=== PATIENT | male | born 1975 | race Caucasian/White ===

== ENCOUNTER 2016-12-07 16:35 | Emergency (ER) | payer MEDICAID ==
[~2016-12-07] VITALS: Ht 188 cm; Wt 120.0 kg
[2016-12-07 16:39] VITALS: BP 145/99; PULSE 120; RESP 14; TEMP 98.6; O2SAT 94
[2016-12-07 17:21] VITALS: PULSE 90; O2SAT 99
[2016-12-07] MEDS ORDERED: NAPR500T PO (17:23)
[2016-12-07] MEDS ORDERED: PERI0.126 SWISH-SPIT (17:23)
[2016-12-07] MEDS ORDERED: AMOX500C PO (17:23)
[2016-12-07] MEDS ORDERED: MAGICADU2 SWISH-SPIT (17:23)
--- NOTE | 2016-12-07 17:24 | PD ---
HPI Chief Complaint: Oral / Dental Pain or Problem Time Seen by Provider: 17:19 Travel History International Travel<30 days: No Contact w/Intl Traveler<30days: No Traveled to known affect area: No History of Present Illness HPI 41-year-old male presents to the emergency Department with complaint of left lower dental pain 4 days. Reports his crown fell out a few weeks ago. He contacted a dentist appointment and they cannot see him for 2-3 weeks. He denies fever, chills. Reports vomiting yesterday. Has not vomited today. Has been taking ibuprofen and Tylenol with no relief of pain. Denies facial erythema or edema. He radiates to the left ear. Says his allergy to ibuprofen is that he just can't take 800 mg ibuprofens because they make him sick. He has been taking ibuprofen in small doses which do not make him sick. Allergies iodine. No other modifying factors or associated signs and symptoms. PFSH Past Medical History ADHD: Yes Bipolar Disorder: Yes Cardiovascular Problems: Yes (family) Diminished Hearing: No Hypertension: Yes Past Surgical History Other Surgery: Yes (umbilical hernia repair, LEFT SHOULDER ) Social History Alcohol Use: No Tobacco Use: No Substance Use: No Allergies-Medications (Allergen,Severity, Reaction): Coded Allergies: Ibuprofen (Verified Allergy, Severe, 12/07/16) Iodine (Verified Adverse Reaction, Severe, NAUSEA, 12/07/16) Reported Meds & Prescriptions Reported Meds & Active Scripts Active Naproxen 500 Mg Tab 500 Mg PO BID PRN Amoxicillin 500 Mg Cap 500 Mg PO BID 10 Days Magic Mouthwash Adult Liq (Multi-Ingredient Mouthwash/Gargle) 120 Ml Susp 5 Ml SWISH-SPIT Q3HR PRN Each 5mL contains: Nystatin 200,000units, Diphenhydramine 4.25mg, Viscous Lidocaine 10mg, Alexis syrup 0.8 mL Peridex Liq (Chlorhexidine Gluconate (Mouth) Liq) 0.12% Soln 15 Ml SWISH-SPIT BID 10 Days Review of Systems Except as stated in HPI: all other systems reviewed are Neg Physical Exam Narrative GENERAL: Well-nourished, well-developed male patient, in no acute distress; afebrile, nontoxic-appearing SKIN: Warm and dry. HEAD: Atraumatic. Normocephalic. No facial edema, erythema, tenderness on palpation. No lymphadenopathy. EYES: Pupils equal and round. No scleral icterus. No injection or drainage. ENT: Mucosa pink and moist. No erythema or exudates. No uvular edema. No uvular , palatal, or tonsillar deviation. Airway patent. Nasal turbinates appear normal without nasal blood, purulent drainage or septal hematoma. MOUTH: Mucous membranes moist, no lesions, tongue and gums appear normal. Left lower first molar with partial tooth present; to this with tenderness on palpation to my concerning gingiva is without erythema, edema, drainage Mykel no obvious abscess. NECK: Trachea midline. No lymphadenopathy. CARDIOVASCULAR: Regular rate. RESPIRATORY: No accessory muscle use. GASTROINTESTINAL: Obese. MUSCULOSKELETAL: No obvious deformities. No clubbing. No cyanosis. No edema. NEUROLOGICAL: Awake and alert. Oriented 3. No obvious cranial nerve deficits. Motor grossly within normal limits. Normal speech. PSYCHIATRIC: Appropriate mood and affect; insight and judgment normal. Data Data Last Documented VS Vital Signs Date Time Temp Pulse Resp B/P Pulse Ox O2 Delivery O2 Flow Rate FiO2 12/07/16 17:21 90 99 12/07/16 16:39 98.6 14 145/99 Room Air MDM Medical Decision Making Medical Screen Exam Complete: Yes Emergency Medical Condition: Yes Medical Record Reviewed: Yes Differential Diagnosis Dental abscess, dentalgia, exposed root, gingivitis, dental carry Narrative Course 41-year-old male with left lower first molar with partial tooth present and tenderness on palpation. No obvious abscess. No facial edema or erythema. Patient is afebrile and nontoxic-appearing. Heart rate recheck on physical exam is approximately 90 bpm. Emergency dental information sheet provided. Toradol administered in the ER. Patient cannot take it 100 mg ibuprofens. Naproxen, Peridex mouth rinse, Magic mouthwash, amoxicillin prescribed for home. Instructed patient to follow up with a dentist and he verbalized understanding and agreement of treatment plan. Patient is medically cleared and stable for discharge. Discussed reasons to return to the emergency department. Instructed patient to follow up with primary care provider. Patient agrees with treatment plan. The patients vital signs are stable and the patient is stable for outpatient follow-up and treatment. Patient discharged home, stable and in no acute distress. Diagnosis Primary Impression: Dentalgia Referrals: Dentist Primary Care Physician Patient Instructions: Dental Abscess (ED), Dental Caries (ED), General Instructions, Toothache (ED) Departure Forms: Tests/Procedures, Work Release Enter return to work date: Dec 09, 2016 Additional Instructions: Complete full course of antibiotics Ibuprofen or Tylenol as directed and as needed to reduce pain and inflammation Use Magic mouthwash rinse as directed and as needed to decrease pain Use Peridex as directed for oral hygiene Warm compresses to the affected area Follow-up with dentist Follow-up with primary care provider Return to emergency department immediately with worsening of symptoms Med/Other Pt SpecificInfo: Prescription(s) given Scripts Naproxen 500 Mg [id number] Mg PO BID PRN (PAIN SCALE 1 TO 10) #20 TAB Ref 0 Prov:Mitali Hayward 12/07/16 Amoxicillin 500 Mg Xoj061 Mg PO BID 10 Days Ref 0 Prov:Mitali Hayward 12/07/16 [id number]-Srmaswmupwnwndh-Ljzutdktd Liq (Magic Mouthwash Adult Liq)120 Ml Susp5 Ml SWISH-SPIT Q3HR PRN (PAIN SCALE 1 TO 10) #120 ML Ref 0 Each 5mL contains: Nystatin 200,000units, Diphenhydramine 4.25mg, Viscous Lidocaine 10mg, Alexis syrup 0.8 mL Prov:Mitali Hayward 12/07/16 Chlorhexidine Gluconate (Mouth) Liq (Peridex Liq)0.12% Soln15 Ml SWISH-SPIT BID 10 Days Ref 0 Prov:Mitali Hayward 12/07/16 Disposition: 01 DISCHARGE HOME Condition: Stable Mitali Hayward Dec 07, 2016 17:24
[2016-12-07] MEDS ORDERED: KETOROLAC TROMETHAMINE 60 MG/2 ML (IM) VIAL IM ONE (17:30)
== END 2016-12-07 17:39 | disposition home or self-care (01) ==
LOC: NEPB 16:35
DX: K08.89 Other specified disorders of teeth and supporting structures (principal); R11.10 Vomiting, unspecified; I10 Essential (primary) hypertension
CPT/HCPCS: 96372; 99282; J1885

== ENCOUNTER 2017-03-08 18:51 | Emergency (ER) | payer OTHER, MEDICAID ==
[~2017-03-08] VITALS: Ht 188 cm; Wt 130.0 kg
[~2017-03-08 18:51] MED LIST: AMOX500C PO; MAGICADU2 SWISH-SPIT; NAPR500T PO; PERI0.126 SWISH-SPIT
[2017-03-08 18:53] VITALS: BP 162/17; PULSE 92; RESP 16; TEMP 98.6; O2SAT 92
[2017-03-08] MEDS ORDERED: LIDOCAINE HCL 1% 30 ML VIAL ONE (19:10)
--- NOTE | 2017-03-08 19:12 | PD ---
HPI Chief Complaint: Laceration/Skin Injury Time Seen by Provider: 19:08 Travel History International Travel<30 days: No Contact w/Intl Traveler<30days: No Traveled to known affect area: No History of Present Illness HPI 41-year-old cbxlo-ried-dowkisef white male presents emergency Department with a laceration to his right hand which occurred prior to arrival while working from home. 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 He states that his hand slipped off the wrench into the frame of the truck causing a laceration to his thenar eminence. He is up-to-date with immunizations. Pain is mild. He denies any numbness, tingling or weakness. No other injury. PFSH Past Medical History Narrative Medical Right leg arterial occlusion with embolectomy, bipolar, ADD. Hypertension ADHD: Yes Bipolar Disorder: Yes Cardiovascular Problems: Yes (family) Diminished Hearing: No Deep Vein Thrombosis: Yes Hypertension: Yes Tetanus Vaccination: < 5 Years Past Surgical History Narrative Surgical Left shoulder arthroscopy, left umbilical herniorrhaphy 2, right leg embolectomy Other Surgery: Yes (embolectomy) Social History Alcohol Use: No Tobacco Use: No Substance Use: No Allergies-Medications (Allergen,Severity, Reaction): Coded Allergies: Ibuprofen (Verified Allergy, Severe, 03/08/17) Iodine (Verified Adverse Reaction, Severe, NAUSEA, 03/08/17) Reported Meds & Prescriptions Reported Meds & Active Scripts Active Review of Systems Except as stated in HPI: all other systems reviewed are Neg Physical Exam Narrative GENERAL: This is a well-nourished, well-developed patient, in no apparent distress. SKIN: No rashes, ecchymoses or lesions. Warm and dry. HEAD: Atraumatic. Normocephalic. EYES: PERRL, EOMI, no discharge or injection. No scleral icterus. EARS: Clear NOSE: Nasal turbinates appear normal. THROAT: Mucosa pink and moist. Airway patent. NECK: Trachea midline. supple, moves head freely. LUNGS: Clear to auscultation. CV: Regular in rhythm. ABDOMEN: Soft nontender. EXT: No clubbing cyanosis or edema. Examination the right hand reveals a 3 cm laceration to the thenar eminence. No active bleeding. No foreign body. Neurovascular intact. Data Data Last Documented VS Vital Signs Date Time Temp Pulse Resp B/P Pulse Ox O2 Delivery O2 Flow Rate FiO2 03/08/17 18:53 98.6 92 16 162/17 92 Orders Lidocaine 1% Inj (Xylocaine 1% Inj) (03/08/17 19:15) MDM Medical Decision Making Medical Screen Exam Complete: Yes Emergency Medical Condition: Yes Medical Record Reviewed: Yes Differential Diagnosis MDM: High Differential diagnoses: Fracture, sprain, strain, dislocation, contusion, neurovascular injury Narrative Course Patient's hand is cleansed and sutured. Procedures Procedure Narrative LACERATION LOCATION: Right thenar eminence LENGTH: 3 cm NUMBER OF STITCHES/NORM: 4 REPAIR: The area of the laceration was prepped with Betadine and sterilely draped. The laceration was infiltrated with 1% lidocaine. The wound was copiously irrigated and explored without evidence of foreign body, tendon injury or neurovascular injury. The wound was closed using 4-0 proline. This was a simple single layer repair. A sterile dressing was applied. The patient was advised to keep the dressing clean and dry. Patient tolerated the procedure well. Diagnosis Primary Impression: right hand laceration Patient Instructions: General Instructions Additional Instructions: Rest. Elevation. Daily wound care with soap, water, Neosporin. Tylenol or Advil for pain. Sutures out in 12-14 days. Return to the ER if any problems. Med/Other Pt SpecificInfo: Wound Care Disposition: 01 DISCHARGE HOME Condition: Stable Sandro Overton March 08, 2017 19:12
[2017-03-08] MEDS ORDERED: LIDOCAINE HCL 1% 20 ML VIAL INFIL ONE (19:15)
== END 2017-03-08 19:40 | disposition home or self-care (01) ==
LOC: NEPK 18:51
DX: S61.411A Laceration without foreign body of right hand, initial encounter (principal); W22.09XA Striking against other stationary object, initial encounter; Y93.89 Activity, other specified; Y92.009 Unspecified place in unspecified non-institutional (private) residence as the place of occurrence of the external cause
CPT/HCPCS: 12002